=== PATIENT | male | born 2000 | race Caucasian/White ===

== ENCOUNTER 2020-03-11 22:27 | Emergency (ER) | payer SELFPAY ==
--- NOTE | 2020-03-11 23:01 | EDM.PDOC ---
ED HPI GENERAL MEDICAL PROBLEM - General Chief Complaint: ENT Problem Stated Complaint: BUMPS IN MOUTH, PAIN IN ABDOMEN Time Seen by Provider: 03/11/20 22:44 Source of Information: Reports: Patient History Limitations: Reports: No Limitations - History of Present Illness INITIAL COMMENTS - FREE TEXT/NARRATIVE: Patient is a 19-year-old male who is complaining of having cold sores most noticeable on his lower lip and also feeling some in the posterior part of his mouth and on her tonsil. Symptoms of been getting worse over the last week. He denies any other complaints. He has not been having any fever or chills. Patient is able to swallow. Patient has had cold sores previously. He is question me several times how you possibly get these I have tried to explain to him. Duration: Week(s): (one) Location: Reports: Face Quality: Reports: Ache, Throbbing Severity: Moderate Improves with: Reports: None Worsens with: Reports: Eating Associated Symptoms: Reports: No Other Symptoms lips, mouth Pain Score (Numeric/FACES): 8 - Related Data Allergies Allergy/AdvReac Type Severity Reaction Status Date / Time aripiprazole [From Abilify] Allergy Other Verified 03/11/20 22:43 Home Meds: Home Meds Acyclovir 15 gm TP 5XDAY #1 oint...g. 03/11/20 [Rx] Acyclovir 400 mg PO 5XDAY #30 tablet 03/11/20 [Rx] ED ROS ENT - Review of Systems Review Of Systems: Comprehensive ROS is negative, except as noted in HPI. ED EXAM, ENT - Physical Exam Exam: See Below Exam Limited By: No Limitations General Appearance: Alert, No Apparent Distress Mouth/Throat: Lip Ulcers, Oral Ulcers Head: Atraumatic Neck: Normal Inspection Respiratory/Chest: No Respiratory Distress Extremities: Normal Inspection Neurological: Alert, Oriented Psychiatric: Anxious Skin: Warm, Dry Course - Vital Signs Text/Narrative:: I am starting patient on topical acyclovir and also oral acyclovir. Last Recorded V/S: Last Vital Signs Temp 36.3 C 03/11/20 22:37 Pulse 105 H 03/11/20 22:37 Resp 16 03/11/20 22:37 BP 137/77 03/11/20 22:37 Pulse Ox 99 03/11/20 22:37 Departure - Departure Time of Disposition: 22:59 Disposition: Home, Self-Care 01 Condition: Good Clinical Impression: Herpes gingivostomatitis - Discharge Information Instructions: Cold Sore Referrals: PCP,None [Primary Care Provider] - Additional Instructions: Acyclovir as prescribed. Careful touching the area because they are highly contagious. See PCP for recheck. Return to ER if worse. Care Plan Goals: The following information is given to patients seen in the emergency department who are being discharged to home. This information is to outline your options for follow-up care. We provide all patients seen in our emergency department with a follow-up referral. The need for follow-up, as well as the timing and circumstances, are variable depending upon the specifics of your emergency department visit. If you don't have a primary care physician on staff, we will provide you with a referral. We always advise you to contact your personal physician following an emergency department visit to inform them of the circumstance of the visit and for follow-up with them and/or the need for any referrals to a consulting specialist. The emergency department will also refer you to a specialist when appropriate. This referral assures that you have the opportunity for follow-up care with a specialist. All of these measure are taken in an effort to provide you with optimal care, which includes your follow-up. Under all circumstances we always encourage you to contact your private physician who remains a resource for coordinating your care. When calling for follow-up care, please make the office aware that this follow-up is from your recent emergency room visit. If for any reason you are refused follow-up, please contact the [facility] Emergency Department at and asked to speak to the emergency department charge nurse. Sepsis Event Note - Evaluation Sepsis Screening Result: No Definite Risk - Focused Exam Vital Signs: Vital Signs Temp Pulse Resp BP Pulse Ox 03/11/20 22:37 36.3 C 105 H 16 137/77 99 Date Exam was Performed: 03/11/20 Time Exam was Performed: 22:56
== END 2020-03-11 23:16 | disposition home or self-care (01) ==
LOC: MW.ED 22:27
DX: B00.2 Herpesviral gingivostomatitis and pharyngotonsillitis (principal); Z88.8 Allergy status to other drugs, medicaments and biological substances
CPT/HCPCS: 99282